=== PATIENT | female | born 1945 | race Caucasian/White ===

== ENCOUNTER 2023-09-22 23:10 | Inpatient (IN) | payer OTHER ==
[~2023-09-22] VITALS: Ht 167.6 cm
[2023-09-23] MEDS: MORPHINE SULFATE 4 MG/ML SYR/VIAL IV ONE (02:48)
[2023-09-23 02:53] VITALS: PULSE 96; RESP 18; O2SAT 95
[2023-09-23 02:55] LABS: Basophils # (auto) 0 10 ^3/uL (0-0.2); Basophils % (auto) 0.1 % (0.0-2.0); Eosinophils # (auto) 0 10 ^3/uL (0-0.8); Hematocrit 41.9 % (36.0-46.0); Hemoglobin 13.8 g/dL (12.2-16.2); Lymphocytes # (auto) 0.8 10 ^3/uL (0.4-5.4); Lymphocytes % (auto) 4.6 % (10.0-50.0); Mean Corpuscular Hemoglobin 28.2 pg (28.0-32.0); Mean Corpuscular Volume 85.6 fL (80.0-100.0); Monocytes # (auto) 0.7 10 ^3/uL (0-1.3); Monocytes % (auto) 4.2 % (0.0-12.0); Neutrophils % (auto) 91.1 % (37.0-80.0); Red Blood Cells 4.89 10^6/uL (4.0-5.20); Red Cell Distribution Width 14.2 % (11.8-14.3); White Blood Cell 17.6 10^3/uL (4.4-10.8)
[2023-09-23 03:06] LABS: Chloride 105 mmol/L (98-107); Potassium 4.1 mmol/L (3.5-5.1); Sodium 139 mmol/L (136-145)
[2023-09-23 03:07] LABS: Anion Gap 9 (5-15); Carbon Dioxide 25 mmol/L (20-30)
[2023-09-23 03:08] LABS: Calcium 9.8 mg/dL (8.7-10.4)
[2023-09-23 03:12] LABS: Glucose 143 mg/dL (74-106)
[2023-09-23 03:13] LABS: BUN/Creatinine Ratio 23.2 (10.0-20.0); Blood Urea Nitrogen 13 mg/dL (9-23)
[2023-09-23 03:27] LABS: INR 1.08 (0.9-1.15); Prothrombin Time 11.4 sec (9.3-11.8)
[2023-09-23] MEDS ORDERED: DOCUSATE SOD 100 MG CAP PO PRN (03:45)
[2023-09-23] MEDS ORDERED: MORPHINE SULFATE INJ 2 MG/ml SYRG IV PRN (03:45)
[2023-09-23] MEDS ORDERED: NITROGLYCERIN 0.4 MG SL TAB SL PRN (03:45)
[2023-09-23] MEDS ORDERED: ONDANSETRON HCL 4 MG/2 ML VIAL IV PRN (03:45)
[2023-09-23 06:11] LABS: Urine Bacteria None Seen /hpf (None Seen)
[2023-09-23 06:25] LABS: Urine Blood Negative /uL (Negative); Urine Clarity Clear (Clear); Urine Color Light-Yellow (Yellow); Urine Hyaline Cast FEW /lpf (0 - 2); Urine Mucus FEW (None Seen); Urine Protein, UAD Negative (Negative); Urine Specific Gravity 1.015 (1.001-1.035); Urine Urobilinogen Normal (Negative); Urine WBC 17 /hpf (0 - 5); Urine pH 6.5 (5.0-9.0)
[2023-09-23 07:08] LABS: Chloride 105 mmol/L (98-107); Potassium 4.2 mmol/L (3.5-5.1); Sodium 139 mmol/L (136-145)
[2023-09-23 07:09] LABS: Anion Gap 3 (5-15); Carbon Dioxide 31 mmol/L (20-30)
[2023-09-23 07:10] LABS: Calcium 9.6 mg/dL (8.5-10.1)
[2023-09-23 07:14] LABS: BUN/Creatinine Ratio 21.8 (10.0-20.0); Blood Urea Nitrogen 12 mg/dL (9-23); Glucose 123 mg/dL (74-106)
[2023-09-23 08:21] LABS: Basophils # (auto) 0.1 10 ^3/uL (0-0.2); Basophils % (auto) 0.4 % (0.0-2.0); Eosinophils # (auto) 0 10 ^3/uL (0-0.8); Eosinophils % (auto) 0.1 % (0.0-7.0); Hematocrit 42.1 % (36.0-46.0); Hemoglobin 13.7 g/dL (12.2-16.2); Lymphocytes # (auto) 2.1 10 ^3/uL (0.4-5.4); Lymphocytes % (auto) 14.2 % (10.0-50.0); Mean Corpuscular Hemoglobin 28.4 pg (28.0-32.0); Mean Corpuscular Hgb Conc. 32.7 g/dL (32.0-36.0); Mean Corpuscular Volume 86.9 fL (80.0-100.0); Monocytes # (auto) 1.2 10 ^3/uL (0-1.3); Monocytes % (auto) 8.1 % (0.0-12.0); Neutrophils # (auto) 11.2 10 ^3/uL (1.6-8.6); Neutrophils % (auto) 77.2 % (37.0-80.0); Nucleated Red Blood Cells % 0.1 %; Red Blood Cells 4.84 10^6/uL (4.0-5.20); Red Cell Distribution Width 14.6 % (11.8-14.3); White Blood Cell 14.5 10^3/uL (4.4-10.8)
[2023-09-23 09:18] VITALS: BP 130/70; PULSE 86; RESP 17; TEMP 97.8; O2SAT 92
[2023-09-23] MEDS: ENOXAPARIN SOD 40 MG/0.4 ML SYRINGE SC SCH (10:33)
[2023-09-23] MEDS ORDERED: AMOX200S36 PO (11:02)
[2023-09-23] MEDS: cefTRIAXone 1GM/50ML D5W 50 ML IV SCH (11:04)
[2023-09-23] MEDS ORDERED: LOPE1TAB9 PO (13:53)
[2023-09-23] MEDS ORDERED: OLAN1TAB7 PO (13:56)
[2023-09-23] MEDS ORDERED: MIRT1TAB38 PO (13:56)
[2023-09-23] MEDS: OLANZapine 5 MG TAB PO ONE (14:52)
[2023-09-23] MEDS: HYDROcodone-ACET 5/325MG TAB PO PRN (15:14)
[2023-09-23 17:11] VITALS: BP 139/74; PULSE 97; RESP 20; TEMP 98.1; O2SAT 94
[2023-09-23 17:42] VITALS: PULSE 97; RESP 20; O2SAT 94
[2023-09-23 20:00] VITALS: RESP 18
[2023-09-23] MEDS: MORPHINE SULFATE INJ 2 MG/ml SYRG IV PRN (20:18)
[2023-09-23 21:00] VITALS: BP 123/69; PULSE 91; RESP 16; TEMP 97.8; O2SAT 93
[2023-09-24 05:00] VITALS: BP 151/80; PULSE 101; RESP 16; TEMP 98.7; O2SAT 92
[2023-09-24 05:40] VITALS: BP 148/88
[2023-09-24 06:03] LABS: Basophils # (auto) 0.1 10 ^3/uL (0-0.2); Basophils % (auto) 0.4 % (0.0-2.0); Eosinophils # (auto) 0.2 10 ^3/uL (0-0.8); Eosinophils % (auto) 1.3 % (0.0-7.0); Hematocrit 41.6 % (36.0-46.0); Hemoglobin 13.9 g/dL (12.2-16.2); Lymphocytes # (auto) 1.5 10 ^3/uL (0.4-5.4); Lymphocytes % (auto) 12.9 % (10.0-50.0); Mean Corpuscular Hemoglobin 28.7 pg (28.0-32.0); Mean Corpuscular Hgb Conc. 33.4 g/dL (32.0-36.0); Mean Corpuscular Volume 85.8 fL (80.0-100.0); Monocytes # (auto) 1.3 10 ^3/uL (0-1.3); Neutrophils # (auto) 8.8 10 ^3/uL (1.6-8.6); Neutrophils % (auto) 74.4 % (37.0-80.0); Nucleated Red Blood Cells % 0.1 %; Red Blood Cells 4.85 10^6/uL (4.0-5.20); Red Cell Distribution Width 14.7 % (11.8-14.3); White Blood Cell 11.8 10^3/uL (4.4-10.8)
[2023-09-24 06:14] LABS: Anion Gap 10 (5-15); Carbon Dioxide 26 mmol/L (20-30); Chloride 104 mmol/L (98-107); Potassium 3.6 mmol/L (3.5-5.1); Sodium 140 mmol/L (136-145)
[2023-09-24 06:15] LABS: Calcium 9.5 mg/dL (8.7-10.4)
[2023-09-24 06:20] LABS: BUN/Creatinine Ratio 18.9 (10.0-20.0); Blood Urea Nitrogen 10 mg/dL (9-23); Glucose 115 mg/dL (74-106)
[2023-09-24 07:19] LABS: INR 1.11 (0.9-1.15); Partial Thromboplastin Time 29.3 SEC (24.5-34.5); Prothrombin Time 11.7 sec (9.3-11.8)
[2023-09-24 08:37] VITALS: BP 138/72; PULSE 101; RESP 18; TEMP 99.7; O2SAT 93
[2023-09-24] MEDS: OLANZapine 5 MG TAB PO SCH (10:00)
[2023-09-24 12:46] VITALS: BP 123/63; PULSE 96; RESP 20; TEMP 99; O2SAT 93
[2023-09-24 17:23] VITALS: BP 119/84; PULSE 101; RESP 22; TEMP 100.3; O2SAT 92
[2023-09-24 21:00] VITALS: BP 152/77; PULSE 105; RESP 19; TEMP 99.1; O2SAT 93
[2023-09-25] VITALS (8 sets, daily range): BP systolic 126–166; BP diastolic 61–98; PULSE 83–109; RESP 17–20; TEMP 97.2–100.1; O2SAT 91–95
[2023-09-25 06:21] LABS: Basophils # (auto) 0.1 10 ^3/uL (0-0.2); Basophils % (auto) 0.4 % (0.0-2.0); Eosinophils # (auto) 0 10 ^3/uL (0-0.8); Eosinophils % (auto) 0.2 % (0.0-7.0); Hematocrit 41.8 % (36.0-46.0); Hemoglobin 14.2 g/dL (12.2-16.2); Lymphocytes # (auto) 1.6 10 ^3/uL (0.4-5.4); Lymphocytes % (auto) 8.7 % (10.0-50.0); Mean Corpuscular Hemoglobin 29.1 pg (28.0-32.0); Mean Corpuscular Volume 85.6 fL (80.0-100.0); Monocytes % (auto) 10.9 % (0.0-12.0); Neutrophils # (auto) 14.5 10 ^3/uL (1.6-8.6); Neutrophils % (auto) 79.8 % (37.0-80.0); Red Blood Cells 4.88 10^6/uL (4.0-5.20); Red Cell Distribution Width 14.1 % (11.8-14.3); White Blood Cell 18.2 10^3/uL (4.4-10.8)
[2023-09-25 07:44] LABS: Anion Gap 10 (5-15); Carbon Dioxide 23 mmol/L (20-30); Chloride 106 mmol/L (98-107); Potassium 3.3 mmol/L (3.5-5.1); Sodium 139 mmol/L (136-145)
[2023-09-25 07:45] LABS: Calcium 9.5 mg/dL (8.5-10.1)
[2023-09-25 07:49] LABS: Glucose 124 mg/dL (74-106)
[2023-09-25 07:50] LABS: Blood Urea Nitrogen 12 mg/dL (9-23)
[2023-09-25 08:08] LABS: BUN/Creatinine Ratio 22.6 (10.0-20.0)
[2023-09-25] MEDS: ACETAMINOPHEN 325 MG TAB PO PRN (11:05)
[2023-09-25 11:07] LABS: Folate (Folic Acid) 18.23 ng/mL (>5.38)
[2023-09-25 11:08] LABS: Free T4 (Free Thyroxine) 1.08 ng/dL (0.89-1.76)
[2023-09-25] MEDS ORDERED: POTASSIUM EFFERVESENT TAB 25 MEQ PO ONE (14:45)
[2023-09-25] MEDS: POTASSIUM CHLORIDE 20 MEQ, LIDOCAINE 1% (LOCAL ANESTH.) 2 ML in SODIUM CHL 0.9% 100 ML IV ONE (15:00)
[2023-09-26 01:00] VITALS: BP 133/78; PULSE 55; RESP 16; TEMP 99.2; O2SAT 94
[2023-09-26 05:00] VITALS: BP 150/83; PULSE 53; RESP 16; TEMP 98.2; O2SAT 95
[2023-09-26 07:04] LABS: Basophils # (auto) 0.1 10 ^3/uL (0-0.2); Basophils % (auto) 0.4 % (0.0-2.0); Eosinophils # (auto) 0.2 10 ^3/uL (0-0.8); Eosinophils % (auto) 1.5 % (0.0-7.0); Hematocrit 41.6 % (36.0-46.0); Hemoglobin 13.8 g/dL (12.2-16.2); Lymphocytes # (auto) 1.6 10 ^3/uL (0.4-5.4); Lymphocytes % (auto) 9.6 % (10.0-50.0); Mean Corpuscular Hemoglobin 28.6 pg (28.0-32.0); Mean Corpuscular Hgb Conc. 33.2 g/dL (32.0-36.0); Mean Corpuscular Volume 86.1 fL (80.0-100.0); Monocytes # (auto) 1.9 10 ^3/uL (0-1.3); Monocytes % (auto) 11.3 % (0.0-12.0); Neutrophils # (auto) 12.8 10 ^3/uL (1.6-8.6); Neutrophils % (auto) 77.2 % (37.0-80.0); Red Blood Cells 4.83 10^6/uL (4.0-5.20); Red Cell Distribution Width 14.7 % (11.8-14.3); White Blood Cell 16.6 10^3/uL (4.4-10.8)
[2023-09-26 07:31] LABS: Calcium 9.6 mg/dL (8.7-10.4); Chloride 108 mmol/L (98-107); Potassium 3.6 mmol/L (3.5-5.1)
[2023-09-26 07:32] LABS: Anion Gap 11 (5-15); Carbon Dioxide 26 mmol/L (20-30)
[2023-09-26 07:37] LABS: BUN/Creatinine Ratio 30.9 (10.0-20.0); Blood Urea Nitrogen 17 mg/dL (9-23); Glucose 110 mg/dL (74-106)
[2023-09-26 07:39] LABS: Sodium 145 mmol/L (136-145)
[2023-09-26 08:31] VITALS: BP 139/72; PULSE 95; RESP 14; TEMP 98; O2SAT 93
[2023-09-26 12:33] VITALS: BP 124/76; PULSE 94; RESP 14; TEMP 99; O2SAT 92
[2023-09-26 17:00] VITALS: BP 128/77; PULSE 98; RESP 18; TEMP 99.5; O2SAT 100
[2023-09-26 18:03] VITALS: BP 128/77; PULSE 98; RESP 18; TEMP 99.5; O2SAT 100
== END 2023-09-26 18:53 | disposition hospice, home (50) | DRG 536 ==
LOC: ER 23:10 → CENTRAL 09-23 03:50 → OVERFLOW 09-23 03:50 → EAST 09-23 09:18 → CENTRAL 09-23 15:36
PROVIDERS: ADMIT Internal Medicine; ATTEND Internal Medicine
DX: S72.012A Unspecified intracapsular fracture of left femur, initial encounter for closed fracture (principal); N39.0 Urinary tract infection, site not specified; F03.90 Unspecified dementia, unspecified severity, without behavioral disturbance, psychotic disturbance, mood disturbance, and anxiety; I10 Essential (primary) hypertension; W01.0XXA Fall on same level from slipping, tripping and stumbling without subsequent striking against object, initial encounter; Z66 Do not resuscitate; Z96.652 Presence of left artificial knee joint; L53.9 Erythematous condition, unspecified; B02.9 Zoster without complications; R32 Unspecified urinary incontinence; Y93.89 Activity, other specified; Y92.89 Other specified places as the place of occurrence of the external cause; Y99.8 Other external cause status
CPT/HCPCS: 36415; 70450; 71045; 73502; 73562; 73610; 80048; 81001; 82607; 82746; 84439; 84443; 85025; 85610; 85730; 86850; 86900; 86901; 87040; 87086; 87088; 87186; 93306; 96374; G0378; J2001